=== PATIENT | female | born 1975 | race Caucasian/White ===

== ENCOUNTER 2023-04-07 06:46 | Day surgery (SDC) | payer BC ==
[2023-04-07] MEDS ORDERED: Ringers Lactate 1,000 ML IV ONE (07:25)
[2023-04-07 08:09] LABS: Urine Specific Gravity/Preg 1.025 (1.005-1.030)
[2023-04-07] MEDS ORDERED: LIDOCAINE HCL/EPINEPHRINE 20 ML MDV ONE (08:09)
[2023-04-07] MEDS ORDERED: OXYMETAZOLINE HCL 0.05% 15ML NAS ONE (08:09)
[2023-04-07] MEDS ORDERED: EPINEPHRINE/PF 1 MG/ML AMP ONE (08:09)
[2023-04-07] MEDS ORDERED: propofoL 200 MG/20 ML VIAL IV ONE ×3 (08:17→09:33)
[2023-04-07] MEDS ORDERED: FENTANYL CITR 100 MCG/2 ML ONE ×3 (08:17→09:25)
[2023-04-07] MEDS ORDERED: MIDAZOLAM HCL 2 MG/2 ML INJ ONE (08:18)
[2023-04-07] MEDS ORDERED: LIDOCAINE 2% MPF 5 ML VIAL ONE (08:18)
[2023-04-07] MEDS ORDERED: ONDANSETRON 4 MG/2 ML VIAL ONE (08:20)
[2023-04-07] MEDS ORDERED: dexAMETHasone 10 MG/ML VIAL ONE ×2 (08:20→09:15)
[2023-04-07] MEDS ORDERED: ROCURONIUM 50 MG/5 ML VIAL IV ONE (09:04)
[2023-04-07] MEDS ORDERED: ACETAMINOPHEN 325 MG TABLET ONE (11:13)
[2023-04-07 13:41] VITALS: O2SAT 96
[2023-04-07 14:00] VITALS: BP 132/92; TEMP 97.8
--- NOTE | 2023-04-08 21:27 | OP ---
Date of Procedure: 04/07/2023 Surgeon: ELAYNE MCDONALD Preoperative Diagnoses: 1.Chronic dysphonia. 2.Bilateral vocal cord neoplasm, uncertain behavior. Postoperative Diagnoses: 1.Chronic dysphonia. 2.Bilateral vocal cord neoplasm, uncertain behavior. Procedure: Flexible bronchoscopy. Anesthesia: General endotracheal anesthesia was administered. 2 sized tubes were used including a 7.5, and a 6.0 endotracheal tube. We also did spontaneous ventil ation through the last half of the procedure. Estimated Blood Loss: None. Specimens: None. Findings: Difficult airway with small glottis, small neck, and small epiglottis. Mucoid secretions in the lower segment bronchials, but no neoplasm. Complications: None. Disposition: Stable. Patient tolerated the procedure well. Indication For Procedure: Patient is a pleasant 48-year-old female who presents in the outpatient cl in with chronic dysphonia. 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 These were indicat ions to bring the patient to operative suite for the above-mentioned procedure. She understood, all questions were answered. Risks versus benefits and complications were explained in detail and a cons ent form was signed, which was placed in the chart. Description Of Procedure: Patient was transferred from the preoperative holding area to the operativ e suite by Department of Anesthesia, placed on the operating table supine, sedated, intubated in norm al fashion. Table was rotated 90 degrees. A flexible bronchoscope was introduced through a 7.5 mm e ndotracheal tube and advanced to the level of the yolanda. The scope was advanced into the right and left mainstem bronchi and there was no evidence of abnormality, mucosal irritation, or neoplasm. The scope was then advanced to the lower segment bronchials involving the right and left lungs. The low er segment bronchials bilaterally were normal with just a mild amount of mucoid secretions, but no ev idence of neoplasm, ulceration, or irritation. Then, secretions were suctioned and then the scope wa s withdrawn through the endotracheal tube. The tube was then changed out to a smaller 6.0 mm endotra cheal tube and then taped to the left oral commissure. A rigid laryngoscope was advanced along the e ndotracheal tube down to the level of the epiglottis and I could not visualize the glottis and the ep iglottis could not be reflected anteriorly. I tried multiple different scopes including an anterior glottic laryngoscope and again due to the lack of reflection of the epiglottis anteriorly and the fac t the epiglottis was very short as was her small glottis, I was able to get her suspended. We attemp franklin for at least a 0.5 hour also removing the endotracheal tube. At one point, it seemed like I coul d get a good visualization of her laryngeal complex and again multiple attempts were unsuccessful. T his was after flexing the neck on the chest and extending the neck and it was felt at this point that the patient would be in better hands with a subspecial lead sql developer. Thus, the rest of the procedu re was aborted. Patient was awakened, extubated, and transferred to postoperative care unit in stabl e condition. It was discussed with her family that she will be referred to a lead sql developer and a daniella ne call was made and she is scheduled for an appointment on April 08 at 11:00 a.m. patient will follow up with me in 4 weeks or sooner if needed. FRANSICO/KINJAL Voice ID: [id number] Report ID: [id number]
== END 2023-04-07 12:00 | disposition home or self-care (01) ==
LOC: OR 06:46
PROVIDERS: ATTEND Otolaryngology Facial Plastic Surgery
PROC: 0BJ08ZZ Inspection of Tracheobronchial Tree, Via Natural or Artificial Opening Endoscopic (ICD-10-PCS; principal; 2023-04-07 08:00)
PROC: 0CJS8ZZ Inspection of Larynx, Via Natural or Artificial Opening Endoscopic (ICD-10-PCS; 2023-04-07 08:00)
DX: R49.0 Dysphonia (principal); D38.0 Neoplasm of uncertain behavior of larynx
CPT/HCPCS: 31622; 31525; 81025; J2704; J2001; J2250; J3010 ×3; J1100 ×2; J2405; J7120; J0171

== ENCOUNTER 2023-11-22 09:08 | Emergency (ER) | payer BC ==
--- OUTSIDE RECORDS SUMMARY | 2023-11-22 09:12 | XMS REPORT | Continuity of Care Document ---
Author Name Unknown Address [address] [facility]. [address] [place] [address] [facility] thconnect Address [address] [facility] [place] [address] Care Team Providers Care Entertainer & Comic Name Role Phone Andreas Trent M Primary Care Physician [phone] Andreas Trent M Attending Clinician Unavailable EBRACHARLOTTE CROWE Attending Clinician Unavailable Ebrahim INSPECTOR WIRE ROPECharlotte Cancino Attending Clinician [phone] Unknown, Attending Attending Clinician Unavailab Fletcher Mary NP Attending Clinician FLETCHER FARIAS Attending Clinician Unavaila ble Doctor Unassigned, [place] Attending Clinician U cindyailFLETCHER Reynolds Admitting Clinician Unavailsukhwinder shaw Payers Payer Name Policy Type Policy Number Effective Date Expirati on Date Source [facility] 6 [id number] 2017 00:00:00 [facility] - OUT OF STATE [id number] 2020 00:00:00 Problems Condition Name Condition Details Condition Category Status Onset Date Resolution Date Last Treatment Date Treating Clinician Comments Source Breast cancer screening by mammogram Breast cancer screening by mammogram Disease Active 01-16 00:00: 00 [facility] Cervical cancer screening Cervical cancer screening Disease Active 01-16 00:00: 00 [facility] BMI 25.0-25.9, adult BMI 25.0-25.9, adult Disease Active 01-16 00:00: 00 [facility] Need for vaccinatio n Need for vaccinatio n Disease Active 01-16 00:00: 00 [facility] BMI 25.0-25.9, adult BMI 25.0-25.9, adult Disease Active 01-16 00:00: 00 [facility] Excessive or frequent menstruati on Excessive or frequent menstruati on Disease Active 01-13 00:00: 00 [facility] Gastroesop hageal reflux disease Gastroesop hageal reflux disease Disease Active 01-06 00:00: 00 [facility] Anxiety disorder Anxiety disorder Problem [facility] Allergic rhinitis Non-season al allergic rhinitis, unspecifie d trigger Problem [facility] [id number] Mild intermitte nt asthma with exacerbati on Problem [facility] Hypothyroi dism Hypothyroi dism Problem [facility] Moderate persistent asthma Moderate persistent asthma Problem [facility] [id number] Mixed hyperlipid emia Problem [facility] [id number] GERD without esophagiti s Problem [facility] Allergies, Adverse Reactions, Alerts Allergy Name Allergy Type Status Severity Reaction(s) Onset Date Inactive Date Treating Clinician Comments Source Meperidi ne (Pf) Propensi ty to adverse reaction s Active Unknown - See comments 12-04 00:00: 00 [facility] Sulfa (Sulfona mide Antibiot ics) Propensi ty to adverse reaction s Active Unknown - See comments 12-04 00:00: 00 [facility] MEPERIDI NE (PF) DRUG Active Unknown-Cmnt 12-04 00:00: 00 [facility] SULFA (SULFONA MIDE ANTIBIOT ICS) Drug Class Active Unknown-Cmnt 12-04 00:00: 00 [facility] Chocolat e Chocolat e Active Unknown [facility] Social History Social Habit Start Date Stop Date Quantity Comments Source History of Tobacco Use [facility] Sex Assigned At [facility] Alcohol intake 2023-02-15 00:00:00 2023-02-15 00:00:00 Current drinker of alcohol (finding) [facility] History of Social function 2022-01-13 00:00:00 2022-01-13 00:00:00 [facility] Tobacco use and exposure 2022-01-13 00:00:00 2022-01-13 00:00:00 Smokeless tobacco non-user [facility] Smoking Status Start Date Stop Date Source Never smoked tobacco [facility] Medications Ordered Medication Name Filled Medication Name Start Date Stop Date Current Medication? Ordering Clinician Indication Dosage Frequency Signature (SIG) Comments Components Source dexamethaso ne (DECADRON) injection 10 mg 02-15 16:30: 00 02-15 15:22 :00 No [id number] 10mg [facility] amoxicillin -clavulanat e (AUGMENTIN) 875-125 mg per tablet 02-15 00:00: 00 02-26 04:59 :00 No [id number] 1{tbl} Take 1 tablet by mouth in the morning and 1 tablet in the evening. Do all this for 10 days. [facility] promethazin e-dextromet horphan 6.25-15 mg/5 mL syrup 02-15 00:00: 00 02-26 04:59 :00 No [id number] 5mL Take 5 mL by mouth 4 (four) times daily for 10 days. [facility] Albuterol Sulfate (2.5 MG/3ML) 0.083% Albuterol Sulfate (2.5 MG/3ML) 0.083% 01-17 00:00: 00 No 3{ml_as _needed } QID Albuterol Sulfate (2.5 MG/3ML) 0.083% fluticasone propionate 50 mcg/actuati on nasal spray 01-13 16:32: 58 Yes 1 spray in each nostril [facility] lamotrigine (LAMICTAL ORAL) 01-13 16:32: 58 Yes Take by mouth. [facility] albuterol 90 mcg/actuati on inhaler 01-13 16:32: 58 Yes 2{puff} Take 2 Puffs by mouth as needed. [facility] budesonide- formoteroL 160-4.5 mcg/actuati on inhaler 01-13 16:32: 58 Yes 2 puffs [facility] escitalopra m oxalate 10 mg tablet 01-13 16:32: 58 Yes 1 tablet [facility] methylPREDN ISolone 4 mg tablets 01-05 00:00: 00 01-12 04:59 :00 No as directed with food [facility] Synthroid 100 MCG Synthroid 100 MCG No QD Synthroid 100 MCG Omeprazole 40 MG Omeprazole 40 MG No QD Omeprazole 40 MG Lexapro 10 MG Lexapro 10 MG No 1{table t} QD Lexapro 10 MG Flonase 50 MCG/DOSE Flonase 50 MCG/DOSE No 1{spray _in_eac h_nostr il} QD Flonase 50 MCG/DOSE Protonix Protonix No 2{puff s _as_nee ded} Protonix Levothyroxi ne Sodium 100 MCG Levothyroxi ne Sodium 100 MCG No Levothyrox ine Sodium 100 MCG Symbicort 160-4.5 MCG/ACT Symbicort 160-4.5 MCG/ACT No 2{puffs } BID Symbicort 160-4.5 MCG/ACT Qvar RediHaler 80 MCG/ACT Qvar RediHaler 80 MCG/ACT No QD Qvar RediHaler 80 MCG/ACT Immunizations Ordered Immunization Name Filled Immunization Name Date Status Comments Source SARS-COV-2 COVID-19 SUKHI/J&J VACCINE 2021-09-18 00:00:00 Completed [facility] SARS-COV-2 COVID-19 SUKHI/J&J VACCINE 2021-09-18 00:00:00 Completed [facility] SARS-COV-2 COVID-19 SUKHI/J&J VACCINE 2021-09-18 00:00:00 Completed [facility] SARS-COV-2 COVID-19 SUKHI/J&J VACCINE 2021-09-18 00:00:00 Completed [facility] SARS-COV-2 COVID-19 SUKHI/J&J VACCINE 2021-09-18 00:00:00 Completed [facility] SARS-COV-2 COVID-19 SUKHI/J&J VACCINE 2021-09-18 00:00:00 Completed [facility] SARS-COV-2 COVID-19 SUKHI/J&J VACCINE 2021-09-18 00:00:00 Completed [facility] Flucelvax - multidose vial Flucelvax - multidose vial 2019-04-18 17:03:00 Completed [facility] Flucelvax - multidose vial Flucelvax - multidose vial 2019-04-18 17:03:00 Completed [facility] Flucelvax - multidose vial Flucelvax - multidose vial 2019-04-18 17:03:00 Completed [facility] Flucelvax - multidose vial Flucelvax - multidose vial 2019-04-18 17:03:00 Completed [facility] Flucelvax - multidose vial Flucelvax - multidose vial 2019-04-18 17:03:00 Completed [facility] Flucelvax - multidose vial Flucelvax - multidose vial 2019-04-18 17:03:00 Completed [facility] Flucelvax - multidose vial Flucelvax - multidose vial 2019-04-18 17:03:00 Completed [facility] Flucelvax - multidose vial Flucelvax - multidose vial 2019-04-18 17:03:00 Completed [facility] Flucelvax - multidose vial Flucelvax - multidose vial 2019-04-18 17:03:00 Completed [facility] Flucelvax - multidose vial Flucelvax - multidose vial 2019-04-18 17:03:00 Completed [facility] Flucelvax - multidose vial Flucelvax - multidose vial 2019-04-18 17:03:00 Completed [facility] Flucelvax - multidose vial Flucelvax - multidose vial 2019-04-18 17:03:00 Completed [facility] Flucelvax - multidose vial Flucelvax - multidose vial 2019-04-18 17:03:00 Completed [facility] Flucelvax - multidose vial Flucelvax - multidose vial 2019-04-18 17:03:00 Completed [facility] Flucelvax - multidose vial Flucelvax - multidose vial 2019-04-18 17:03:00 Completed [facility] Influenza Virus Vaccine 2019-04-18 00:00:00 Completed [facility] Influenza Virus Vaccine 2019-04-18 00:00:00 Completed [facility] Influenza Virus Vaccine 2019-04-18 00:00:00 Completed [facility] Influenza Virus Vaccine 2019-04-18 00:00:00 Completed [facility] Influenza Virus Vaccine 2019-04-18 00:00:00 Completed [facility] Influenza Virus Vaccine 2019-04-18 00:00:00 Completed [facility] Influenza Virus Vaccine 2019-04-18 00:00:00 Completed [facility] Flucelvax - multidose vial Flucelvax - multidose vial 2019-04-18 00:00:00 Completed [facility] Flucelvax - multidose vial Flucelvax - multidose vial Unknown Completed [facility] Flucelvax - multidose vial Flucelvax - multidose vial Unknown Completed [facility] Flucelvax - multidose vial Flucelvax - multidose vial Unknown Completed [facility] Flucelvax (ccIIV4) - MDV - 0.5mL Flucelvax (ccIIV4) - MDV - 0.5mL Unknown Completed [facility] Flucelvax (ccIIV4) - MDV - 0.5mL Flucelvax (ccIIV4) - MDV - 0.5mL Unknown Completed [facility] Flucelvax (ccIIV4) - MDV - 0.5mL Flucelvax (ccIIV4) - MDV - 0.5mL Unknown Completed [facility] Flucelvax (ccIIV4) - MDV - 0.5mL Flucelvax (ccIIV4) - MDV - 0.5mL Unknown Completed [facility] Flucelvax (ccIIV4) - MDV - 0.5mL Flucelvax (ccIIV4) - MDV - 0.5mL Unknown Completed [facility] Flucelvax (ccIIV4) - MDV - 0.5mL Flucelvax (ccIIV4) - MDV - 0.5mL Unknown Completed [facility] Vital Signs Vital Name Observation Time Observation Value Comments S ource height 2023-07-04 10:30:00 60 [in_i] Commo n [facility] weight 2023-07-04 10:30:00 140 [lb_av] Comm on [facility] temperature 2023-07-04 10:30:00 97.6 [degF] Com mon [facility] bmi 2023-07-04 10:30:00 27.34 kg/m2 Comm on [facility] blood pressure systolic 2023-07-04 10:30:00 120 mm[Hg] [facility] blood pressure diastolic 2023-07-04 10:30:00 80 mm[Hg] [facility] height 2023-06-08 09:30:00 60 [in_i] Commo n [facility] weight 2023-06-08 09:30:00 143.4 [lb_av] Co mmon [facility] temperature 2023-06-08 09:30:00 97.6 [degF] Com mon [facility] bmi 2023-06-08 09:30:00 28 kg/m2 Commo n [facility] oximetry 2023-06-08 09:30:00 97 [facility] 2023-06-08 09:30:00 132 mm[Hg] [facility] blood pressure diastolic 2023-06-08 09:30:00 74 mm[Hg] [facility] Systolic blood pressure 2023-02-15 14:49:00 126 mm[Hg] [facility] Diastolic blood pressure 2023-02-15 14:49:00 85 mm[Hg] [facility] Heart rate 2023-02-15 14:49:00 102 /min [facility] Body temperature 2023-02-15 14:49:00 36.61 Cheryle [facility] Respiratory rate 2023-02-15 14:49:00 14 /min [facility] Body height 2023-02-15 14:49:00 154.9 cm [facility] Body weight 2023-02-15 14:49:00 59.33 kg [facility] BMI 2023-02-15 14:49:00 24.71 kg/m2 [facility] Oxygen saturation in Arterial blood by Pulse oximetry 2023-02-15 14:49:00 96 /min [facility] height 2023-01-12 09:40:00 60 [in_i] Commo n [facility] weight 2023-01-12 09:40:00 140 [lb_av] Comm on [facility] temperature 2023-01-12 09:40:00 98.5 [degF] Com mon [facility] bmi 2023-01-12 09:40:00 27.34 kg/m2 Comm on [facility] oximetry 2023-01-12 09:40:00 97 % Commo n [facility] respiratory rate 2023-01-12 09:40:00 17 /min [facility] blood pressure systolic 2023-01-12 09:40:00 123 mm[Hg] [facility] blood pressure diastolic 2023-01-12 09:40:00 83 mm[Hg] [facility] height 2022-07-21 16:40:00 60 [in_i] Commo n [facility] weight 2022-07-21 16:40:00 135 [lb_av] Comm on [facility] bmi 2022-07-21 16:40:00 26.36 kg/m2 Comm on [facility] blood pressure systolic 2022-07-21 16:40:00 131 mm[Hg] [facility] blood pressure diastolic 2022-07-21 16:40:00 80 mm[Hg] [facility] height 2022-02-01 11:00:00 60 [in_i] Commo n [facility] weight 2022-02-01 11:00:00 134 [lb_av] Comm on [facility] bmi 2022-02-01 11:00:00 26.17 kg/m2 Comm on [facility] height 2022-01-18 09:50:00 60 [in_i] Commo n [facility] weight 2022-01-18 09:50:00 134 [lb_av] Comm on [facility] temperature 2022-01-18 09:50:00 97.7 [degF] Com mon [facility] bmi 2022-01-18 09:50:00 26.17 kg/m2 Comm on [facility] oximetry 2022-01-18 09:50:00 98 % Commo n [facility] respiratory rate 2022-01-18 09:50:00 16 /min [facility] blood pressure systolic 2022-01-18 09:50:00 132 mm[Hg] [facility] blood pressure diastolic 2022-01-18 09:50:00 87 mm[Hg] [facility] Systolic blood pressure 2022-01-13 21:31:00 124 mm[Hg] [facility] Diastolic blood pressure 2022-01-13 21:31:00 86 mm[Hg] [facility] Heart rate 2022-01-13 21:31:00 72 /min [facility] Body temperature 2022-01-13 21:31:00 36.78 Cheryle [facility] Respiratory rate 2022-01-13 21:31:00 18 /min [facility] Body height 2022-01-13 21:31:00 154.9 cm [facility] Body weight 2022-01-13 21:31:00 61.689 kg [facility] BMI 2022-01-13 21:31:00 25.70 kg/m2 [facility] height 2022-01-05 11:40:00 60 [in_i] Commo n [facility] weight 2022-01-05 11:40:00 130 [lb_av] Comm on [facility] bmi 2022-01-05 11:40:00 25.39 kg/m2 Comm on [facility] height 2021-08-28 09:30:00 60 [in_i] Commo n [facility] weight 2021-08-28 09:30:00 130 [lb_av] Comm on [facility] temperature 2021-08-28 09:30:00 97.5 [degF] Com mon [facility] bmi 2021-08-28 09:30:00 25.39 kg/m2 Comm on [facility] height 2021-03-31 16:40:00 60 [in_i] Commo n [facility] weight 2021-03-31 16:40:00 132 [lb_av] Comm on [facility] temperature 2021-03-31 16:40:00 98 [degF] Comm on [facility] bmi 2021-03-31 16:40:00 25.78 kg/m2 Comm on [facility] blood pressure systolic 2021-03-31 16:40:00 122 mm[Hg] [facility] blood pressure diastolic 2021-03-31 16:40:00 70 mm[Hg] [facility] height 2021-03-10 15:30:00 60 [in_i] Commo n [facility] weight 2021-03-10 15:30:00 135.3 [lb_av] Co mmon [facility] temperature 2021-03-10 15:30:00 97.6 [degF] Com mon [facility] bmi 2021-03-10 15:30:00 26.42 kg/m2 Comm on [facility] oximetry 2021-03-10 15:30:00 99 % Commo n [facility] respiratory rate 2021-03-10 15:30:00 16 /min [facility] blood pressure systolic 2021-03-10 15:30:00 125 mm[Hg] [facility] blood pressure diastolic 2021-03-10 15:30:00 87 mm[Hg] [facility] Procedures Procedure Date / Time Performed Performing Clinicia n Source POCT SARS-COV-2 ANTIGEN (BINAX NOW) 2023-02-15 15:08:00 Charlotte Garcia [facility] ASSIGNMENT OF BENEFITS 2022-07-16 19:50:29 Docto r Unassigned, [place] [facility] HIGH RISK HPV-THIN PREP 2022-01-13 21:42:00 Fletcher Farias [facility] PAP SMEAR-LIQUID BASED-CP 2022-01-13 21:42:00 Fletcher Farias [facility] Encounters Start Date/Time End Date/Time Encounter Type Admission Type Attending [facility] Care Department Encounter ID Source 2023-02-11 10:28:00 Outpatient Johns, Trent [facility] [id number] [facility] 2022-07-21 08:41:00 Outpatient Johns, Trent [facility] [id number] [facility] 2022-02-01 08:56:00 Outpatient Johns, Trent [facility] [id number] [facility] 2022-01-18 09:49:00 Outpatient Johns, Trent [facility] ST[facility] [id number] [facility] 2021-08-28 08:16:00 Outpatient Johns, Trent [facility] [id number] [facility] 2021-07-15 13:58:53 Outpatient Johns, Trent [facility] [id number] [facility] 2021-07-15 13:45:10 Outpatient Johns, Trent [facility] ST[facility] [id number] [facility] 2021-07-15 11:09:41 Outpatient Johns, Trent [facility] [id number] [facility] 2021-07-15 11:03:50 Outpatient Johns, Trent [facility] [id number] [facility] 2023-11-21 00:00:00 2023-11-21 00:00:00 (TEL) [facility]C ST[facility] [id number] [facility] 2023-07-11 00:00:00 2023-07-11 00:00:00 (TEL) [facility]C [facility] [id number] [facility] 2023-07-04 00:00:00 2023-07-04 00:00:00 OFFICE VISIT ESTAB PT LEVEL 3 [facility] ST[facility] [id number] [facility] 2023-06-08 00:00:00 2023-06-08 00:00:00 PREV VISIT EST AGE 40-64 [facility] ST[facility]C [id number] [facility] 2023-02-15 09:20:00 2023-02-15 10:31:37 Outpatient R CHARLOTTE GARCIA [facility] [id number] [facility] 2023-02-15 09:20:00 2023-02-15 10:31:37 Urgent Care Charlotte Garcia Unknown, Attending [facility] 1..[id number] [facility] 2023-01-25 00:00:00 2023-01-25 00:00:00 (TEL) STLMLC STL[facility]C [id number] [facility] 2023-01-25 00:00:00 2023-01-25 00:00:00 (TEL) [facility]C [facility] [id number] [facility] 2023-01-17 00:00:00 2023-01-17 00:00:00 (TEL) [facility]C [facility] [id number] [facility] 2023-01-12 00:00:00 2023-01-12 00:00:00 OFFICE VISIT ESTAB PT LEVEL 3 [facility] ST[facility] [id number] [facility] 2023-01-10 00:00:00 2023-01-10 00:00:00 (TEL) STLMLC STL[facility]C [id number] [facility] 2022-07-27 00:00:00 2022-07-27 00:00:00 Telephone Fletcher Farias [facility] 1..840.114 [id number] [facility] 2022-07-21 00:00:2022-07-21 00:00:00 OFFICE VISIT ESTAB PT LEVEL 3 [facility] ST[facility]C [id number] [facility] 2022-07-16 13:52:08 2022-07-16 23:59:00 Outpatient R FLETCHER FARIAS [facility] [id number] [facility] 2022-07-16 13:52:08 2022-07-16 23:59:00 Hospital Encounter Fletcher Farias [facility] [id number] [facility] 2022-07-16 00:00:00 2022-07-16 00:00:00 Orders Only Doctor Unassigned, [place] [facility] [id number] [facility] 2022-07-12 00:00:00 2022-07-12 00:00:00 (TEL) STLMLC ST[facility]C [id number] [facility] 2022-03-05 00:00:00 2022-03-05 00:00:00 Outpatient R FLETCHER FARIAS [facility] [id number] [facility] 2022-02-16 00:00:00 2022-02-16 00:00:00 (TEL) [facility]LMLC ST[facility] [id number] [facility] 2022-02-01 00:00:00 2022-02-01 00:00:00 (TEL) [facility]C [facility]C [id number] [facility] 2022-02-01 00:00:00 2022-02-01 00:00:00 OFFICE VISIT EST PT LEVEL 3 [facility] [id number] [facility] 2022-01-18 00:00:00 2022-01-18 00:00:00 PREV VISIT EST AGE 40-64 STLMLC STLMLC [id number] [facility] 2022-01-13 16:00:00 2022-01-13 17:07:45 Office Visit [facility] [id number] [facility] 2022-01-13 16:00:00 2022-01-13 17:07:45 [facility] [id number] [facility] 2022-01-13 16:00:00 2022-01-13 16:00:00 Outpatient R FLETCHER FARIAS [facility] [id number] [facility] 2022-01-05 00:00:00 2022-01-05 00:00:00 OL DIG E/M SVC 11-20 MIN STLMLC STLMLC [id number] [facility] 2022-01-04 00:00:00 2022-01-04 00:00:00 (TEL) STLMLC ST[facility]C [id number] [facility] 2021-11-09 00:00:00 2021-11-09 00:00:00 (TEL) STLMLC ST[facility]C [id number] [facility] 2021-09-03 00:00:00 2021-09-03 00:00:00 (TEL) STLMLC ST[facility]C [id number] [facility] 2021-08-28 00:00:00 2021-08-28 00:00:00 OFFICE VISIT EST PT LEVEL 3 [facility] ST[facility] [id number] [facility] 2021-08-27 00:00:00 2021-08-27 00:00:00 (TEL) STLMLC ST[facility]C [id number] [facility] 2021-03-31 00:00:00 2021-03-31 00:00:00 OFFICE VISIT EST PT LEVEL 3 [facility] [id number] [facility] 2021-03-10 00:00:00 2021-03-10 00:00:00 OFFICE VISIT ESTAB PT LEVEL 4 [facility] [id number] [facility] 2021-03-09 00:00:00 2021-03-09 00:00:00 (TEL) STLMLC STL[facility]C [id number] [facility] 2020-08-18 00:00:00 2020-08-18 00:00:00 Outpatient [facility] [id number] [facility] 2020-02-21 16:30:00 2020-02-21 16:30:[address] [facility] [id number] [facility] 2020-01-24 15:12:00 2020-01-24 15:12:00 [address] [facility] [id number] [facility] 2020-01-22 13:00:00 2020-01-22 13:00:00 Out[facility] [id number] [facility] 2020-01-22 10:33:00 2020-01-22 10:33:00 [facility] [id number] [facility] 2019-11-29 15:13:00 2019-11-29 15:13:00 [address] [facility] [id number] [facility] 2019-08-15 16:30:00 2019-08-15 16:30:[address] [facility] [id number] [facility] 2019-04-19 16:01:00 2019-04-19 16:01:[address] [facility] [id number] [facility] 2019-04-18 16:30:00 2019-04-18 16:30:[address] [facility] [id number] [facility] 2019-04-11 09:47:00 2019-04-11 09:47:00 [facility] [id number] [facility] 2019-04-06 11:00:00 2019-04-06 11:00:00 [facility] [id number] [facility] 2019-01-15 14:30:00 2019-01-15 14:30:[address] [facility] [id number] [facility] 2018-10-04 15:04:00 2018-10-04 15:04:00 [facility] [id number] [facility] 2018-06-01 07:20:00 2018-06-01 07:20:00 [facility] [id number] [facility] 2018-05-31 15:45:00 2018-05-31 15:45:00 [facility] [id number] [facility] 2017-11-01 14:00:00 2017-11-01 14:00:00 [facility] [id number] [facility] 2017-09-19 16:00:00 2017-09-19 16:00:00 [facility] [id number] [facility] Results Test Description Test Time Test Comments Results Result Co mments Source HEMOGLOBIN [id number] 00:00:00* Test Item Value Reference Range Interpretation Comme nts HEMOGLOBIN A1c (test code = 4548-4) 5.1 % See_Comment [Automated messa ge] The system which generated this result transmitted reference range: 4.2-5.6 %. The reference range was not used to interpret this result as normal/abnormal. TSH REFLEX TO FREE [id number] 00:00:00* Test Item Value Reference Range Interpretation Comme nts TSH REFLEX TO FREE T4 (test code = 83372-6) 3.180 UIU/ML See_Comment [Automated [employer]] The system which generated this result transmitted reference range: 0.400-4.100 UIU/ML. The reference range was not used to interpret this result as normal/abnormal. HEPATITIS C [id number] 00:00:00* Test Item Value Reference Range Interpretation Comme nts HEPATITIS C ANTIBODY (test c ode = 76903-9) NON-REACTIVE NON-REACTIVE URINALYSIS (CULTURE IF INDICATED)2023-06-08 00:00:00* Test Item Value Reference Range Interpretation Comme nts APPEARANCE (test code = 5767-9) CLEAR CLEAR BACTERIA (test code = 97055-6) NONE SEEN NONE SEEN BILIRUBIN (test code = 5770-3) NEGATIVE NEGATIVE CASTS, HYALINE (test code = 51013-7) NONE SEEN NONE-TRACE COLOR (test code = 5778-6) YELLOW YELLOW-STRAW EPITHELIAL CELLS (test code = 55208-3) 0-5 /HPF See_Comment [Automated [employer]] The system which generated this result transmitted reference range: 0-10 /HPF. The reference range was not used to interpret this result as normal/abnormal. GLUCOSE (test code = 5792-7) NEGATIVE NEGATIVE KETONES (test code = 5797-6) NEGATIVE NEGATIVE LEUKOCYTE ESTERASE (test code = 5799-2) NEGATIVE NEGATIVE NITRITE (test code = 5802-4) NEGATIVE NEGATIVE OCCULT BLOOD (test code = 81276-5) 1+ NEGATIVE A pH (test code = 5803-2) 6.5 5.0-9.0 PROTEIN (test code = 96753-7) NEGATIVE NEGATIVE RED BLOOD CELLS (test code = 60766-8) 0-2 /HPF See_Comment [Automated [employer]] The system which generated this result transmitted reference range: 0-2 /HPF. The reference range was not used to interpret this result as normal/abnormal. SPECIFIC GRAVITY (test code = 5811-5) 1.017 1.005-1.035 UROBILINOGEN (test code = 75321-7) 1.0 MG/DL See_Comment [Automated [employer]] The system which generated this result transmitted reference range: <=2.0 MG/DL. The reference range was not used to interpret this result as normal/abnormal. WHITE BLOOD CELLS (test code = 22517-1) 0-5 /HPF See_Comment [Automated messa ge] The system which generated this result transmitted reference range: 0-5 /HPF. The reference range was not used to interpret this result as normal/abnormal. LIPID PANEL WITH REFLEX DIRECT [id number] 00:00:00* Test Item Value Reference Range Interpretation Comme nts CALC LDL CHOL (test code = 94428-8) 131 MG/DL See_Comment H [Automated messa ge] The system which generated this result transmitted reference range: <100 MG/DL. The reference range was not used to interpret this result as normal/abnormal. CHOLESTEROL (test code = 2093-3) 246 MG/DL See_Comment H [Automated messa ge] The system which generated this result transmitted reference range: <200 MG/DL. The reference range was not used to interpret this result as normal/abnormal. HDL CHOLESTEROL (test code = 2085-9) 85 MG/DL See_Comment [Automated messa ge] The system which generated this result transmitted reference range: >39 MG/DL. The reference range was not used to interpret this result as normal/abnormal. RISK RATIO LDL/HDL (test code = 01509-2) 1.54 RATIO See_Comment [Automated message] The system which generated this result transmitted reference range: <3.22 RATIO. The reference range was not used to interpret this result as normal/abnormal. TRIGLYCERIDES (test code = 2571-8) 162 MG/DL See_Comment H [Automated messa ge] The system which generated this result transmitted reference range: <150 MG/DL. The reference range was not used to interpret this result as normal/abnormal. COMPREHENSIVE METABOLIC [id number] 00:00:00* Test Item Value Reference Range Interpretation Comme nts ALBUMIN (test code = 1751-7) 4.5 G/DL See_Comment [Automated messa ge] The system which generated this result transmitted reference range: 3.5-5.2 G/DL. The reference range was not used to interpret this result as normal/abnormal. ALKALINE PHOSPHATASE (test code = 6768-6) 76 U/L See_Comment [Automated message] The system which generated this result transmitted reference range: 40-125 U/L. The reference range was not used to interpret this result as normal/abnormal. BILIRUBIN, TOTAL (test code = 1975-2) 0.5 MG/DL See_Comment [Automated message] The system which generated this result transmitted reference range: <=1.2 MG/DL. The reference range was not used to interpret this result as normal/abnormal. BUN (test code = 3094-0) 12 MG/DL See_Comment [Automated messa ge] The system which generated this result transmitted reference range: 6-20 MG/DL. The reference range was not used to interpret this result as normal/abnormal. CALCIUM (test code = 14799-3) 9.6 MG/DL See_Comment [Automated messa ge] The system which generated this result transmitted reference range: 8.5-10.5 MG/DL. The reference range was not used to interpret this result as normal/abnormal. CALC A/G RATIO (test code = 1759-0) 1.6 RATIO See_Comment [Automated messa ge] The system which generated this result transmitted reference range: 1.0-2.6 RATIO. The reference range was not used to interpret this result as normal/abnormal. CALC BUN/CREAT (test code = 3097-3) 14 RATIO See_Comment [Automated messa ge] The system which generated this result transmitted reference range: 6-28 RATIO. The reference range was not used to interpret this result as normal/abnormal. CALC GLOBULIN (test code = 76686-6) 2.9 G/DL See_Comment [Automated messa ge] The system which generated this result transmitted reference range: 1.9-3.7 G/DL. The reference range was not used to interpret this result as normal/abnormal. CARBON DIOXIDE (test code = 1963-8) 24 MEQ/L See_Comment [Automated messa ge] The system which generated this result transmitted reference range: 19-31 MEQ/L. The reference range was not used to interpret this result as normal/abnormal. CHLORIDE (test code = 2075-0) 102 MEQ/L See_Comment [Automated messa ge] The system which generated this result transmitted reference range: 95-107 MEQ/L. The reference range was not used to interpret this result as normal/abnormal. CREATININE (test code = 2160-0) 0.86 MG/DL See_Comment [Automated messa ge] The system which generated this result transmitted reference range: 0.60-1.30 MG/DL. The reference range was not used to interpret this result as normal/abnormal. eGFR (2020 CKD-EPI) (test code = 16464-2) 83 ML/MIN/1.73 See_Comment [Automated messa ge] The system which generated this result transmitted reference range: >60 ML/MIN/1.73. The reference range was not used to interpret this result as normal/abnormal. GLUCOSE (test code = 1558-6) 82 MG/DL See_Comment [Automated messa ge] The system which generated this result transmitted reference range: 70-99 MG/DL. The reference range was not used to interpret this result as normal/abnormal. POTASSIUM (test code = 2823-3) 4.5 MEQ/L See_Comment [Automated messa ge] The system which generated this result transmitted reference range: 3.5-5.4 MEQ/L. The reference range was not used to interpret this result as normal/abnormal. PROTEIN, TOTAL (test code = 2885-2) 7.4 G/DL See_Comment [Automated messa ge] The system which generated this result transmitted reference range: 6.1-8.3 G/DL. The reference range was not used to interpret this result as normal/abnormal. AST (test code = 1920-8) 19 U/L See_Comment [Automated messa ge] The system which generated this result transmitted reference range: 9-40 U/L. The reference range was not used to interpret this result as normal/abnormal. ALT (test code = 1742-6) 16 U/L See_Comment [Automated messa ge] The system which generated this result transmitted reference range: 5-40 U/L. The reference range was not used to interpret this result as normal/abnormal. SODIUM (test code = 2951-2) 138 MEQ/L See_Comment [Automated messa ge] The system which generated this result transmitted reference range: 133-146 MEQ/L. The reference range was not used to interpret this result as normal/abnormal. POCT SARS-COV-2 ANTIGEN (BINAX NOW)2023-02-15 15:23:00* Test Item Value Reference Range Interpretation Comme nts POCT SARS-COV-2 ANTIGEN (geeta t code = 20906-5) Not Detected Not Detected On board controls acceptable with C Line (test code = 3574) Yes Lab Interpretation (test cod e = 18679-3) [facility]BINAX NOW)2023-02-15 15:23:00* Test Item Value Reference Range Interpretation Comme nts POCT SARS-COV-2 ANTIGEN (geeta t code = 73601-8) Not Detected Not Detected On board controls acceptable with C Line (test code = 3574) Yes Lab Interpretation (test cod e = 22448-2) [facility] KATHIE CAD [id number] 11:12:54Name: Jim : 1975 Sex: F - SCR MAMM BILATERAL KATHIE CAD DIGITALBILATERAL DIGITAL SCREENING MAMMOGRAM 3D/2D WITH CAD: 07/22/2021LINICAL: Asymptomatic. Digital breast tomosynthesis was performed in addition to routine CC and MLO views. Current mammographic images were evaluated by [employer] CAD (computer-aided detection) software. Comparison is made toexams dated 07/22/2017 mammogram, 07/13/2016 mammogram, 04/08/2015 mammogram - [facility], and 09/17/2020 mammogram - [facility]. The tissue of both breasts is heterogeneously dense. This may lower the sensitivity of mammography. No suspicious mass, architectural distortion, malignant type calcification, or lymph node abnormality detected. Breast architecture is stable compared to prior exams.IMPRESSION: NEGATIVEThere is no mammographic evidence of malignancy. Resume annual screening mammography in one year. Stevan Mcgregor M.D. et/penrad:07/27/2021 11:12:54 Electrical Superintendent: Cecille Vanessa MM, [facility] Mammographyletter sent: BIRADS 1-2 Normal Mammogram BI-RADS: 1 Duggwbvy3T SCR NEHA BILAT W/CAD3D SCR NEHA BILAT W/CAD
[2023-11-22] MEDS ORDERED: MORPHINE 4 MG/ML SYR ONE (09:52)
[2023-11-22] MEDS ORDERED: METOCLOPRAMIDE 10 MG/2mL INJ ONE (09:52)
[2023-11-22] MEDS ORDERED: NA CHLORIDE 0.9% 1,000 ML ONE (09:52)
[2023-11-22] MEDS ORDERED: DIPHENHYDRAMINE 50 MG/ML VIAL ONE (09:52)
[2023-11-22 10:40] LABS: Absolute Eosinophils 0.2 K/uL (0-0.5); Absolute Lymphocytes (CBC) 0.8 K/uL (0.7-4.9); Absolute Neutrophil 8.4 K/uL (1.8-8.0); Basophils % 0.3 % (0-1.3); Eosinophils % 1.6 % (0-4.4); Hemoglobin 14.9 g/dL (12.0-15.0); Lymphocytes % 7.4 % (15.3-44.8); MCHC 33.8 g/dL (32.0-36.0); MCV 94.6 fL (80-100); MPV 7.9 fL (7.6-11.3); Monocytes % 9.9 % (3.3-12.3); Neutrophils % 80.8 % (41.7-73.7); Platelets 390 thou/uL (152-406); RBC Red Blood Cell Count 4.65 M/uL (3.86-4.86); Red Cell Distribution Width 12.6 % (12.1-15.2)
[2023-11-22 10:44] LABS: Specific Gravity 1.026 (1.005-1.030); Sqamous Epithelial <5 /HPF (None Seen); Urine Bacteria None Seen /HPF (<20); Urine Bilirubin NEGATIVE (Negative); Urine Blood 2+ (Negative); Urine Clarity Turbid (Clear); Urine Color Yellow (Yellow); Urine Culture Reflex Order NOT NEEDED; Urine Glucose NEGATIVE (Negative); Urine Ketones TRACE (Negative); Urine Microscopic Reflex YN ORDER UMIC; Urine Mucus 1+ /HPF (None Seen); Urine Nitrite NEGATIVE (Negative); Urine Protein TRACE (Negative); Urine Urobilinogen 1+ (Normal); Urine WBC <5 /HPF (<5); Urine pH 5.5 (5.0-7.0)
[2023-11-22 10:45] LABS: PTT, Activated Partial Thromb 26.8 SECONDS (24.3-36.9)
[2023-11-22 10:58] LABS: Albumin 3.6 g/dL (3.4-5.0); Albumin/Globulin Ratio 0.9 (1.1-1.8); Anion Gap 9.4 mEq/L (5.0-15.0); Bilirubin Total 1.1 mg/dL (0.2-1.0); Potassium 3.4 mEq/L (3.5-5.1); Protein, Total 7.6 g/dL (6.4-8.2)
--- NOTE | 2023-11-22 11:06 | RAD REPORT ---
EXAM DESCRIPTION: US - Abdomen Exam Limited - 11/22/2023 10:36 am CLINICAL HISTORY: ruq abd pain;Abd pain COMPARISON: No comparisons TECHNIQUE: Sonographic grayscale and color flow images of the right upper abdominal quadrant were o btained. FINDINGS: The gallbladder demonstrates no gallstones. Mild sludge layering dependently. No perichole cystic fluid or gallbladder wall thickening. The common bile duct is normal measuring 2 mm. The liver demonstrates no findings of intrahepatic biliary dilatation. IMPRESSION: Mild gallbladder sludge. No evidence of gallstones or sonographic findings to suggest ac master cholecystitis.
[2023-11-22] MEDS ORDERED: POTASSIUM CL SA 10 MEQ TAB PO ONE (11:26)
--- NOTE | 2023-11-22 11:38 | RAD REPORT ---
EXAM DESCRIPTION: CT - Abdomen Pelvis W Contrast - 11/22/2023 11:06 am CLINICAL HISTORY: ABD PAIN COMPARISON: No comparisons TECHNIQUE: Thin cut axial CT imaging of the abdomen and pelvis was performed following intravenous a dministration of 100 mL Isovue 300. Multiplanar reformats were generated and reviewed. All CT scans are performed using dose optimization technique as appropriate and may include automated exposure control or mA/KV adjustment according to patient size. FINDINGS: No suspicious findings in the lung bases. The liver, spleen, adrenal glands, and pancreas show no suspicious findings. Gallbladder and biliary tree are also without suspicious finding. Symmetric renal function is seen with no hydronephrosis or suspicious renal mass. No dilated bowel loops and long segment of distal small bowel wall thickening, transmural edema, and mucosal hyperenhancement with mild adjacent fat stranding extending to the terminal ileum. No appreci able fluid collections or findings to suggest fistula formation. No free air, or free fluid. No herni a, mass or bulky lymphadenopathy. Bilateral adnexal cysts or dominant follicles, largest measuring 3 cm on the left. The urinary bladder is without significant finding. No suspicious bony findings. Small ovoid hyperdense 1.2 cm structure along the right paramidline aspect of the introitus, may repr esent a complicated small Bartholin's gland cyst. IMPRESSION: Long segment of ileitis extending to the terminal ileum, suggestive of inflammatory dequan l disease, although an infectious etiology is not entirely excluded. No evidence of complications at this time. Incidental findings as above.
--- NOTE | 2023-11-22 12:09 | ER ---
Nurse's Notes [facility] Name: Fidelina Cedeño Age: 48 yrs Sex: Female : 1975 Arrival Date: 11/22/2023 Time: 09:08 Bed 16 Private MD: Diagnosis: Noninfective gastroenteritis and colitis, unspecified;Other cholelithiasis without obstruction Presentation: 11/21 09:22 Chief complaint: Patient states: she has been having upper abdominal pain since Tuesday ap3 11/20/2023. patient states the pain has been cramping with diarrhea and vomiting. patient reports the pain has since moved to her lower abdomen, and has not improved over the last few days. patient currently rates her pain as a 4/10 on the pain scale. Coronavirus screen: At this time, the client does not indicate any symptoms associated with coronavirus-19. Ebola Screen: No symptoms or risks identified at this time. Initial Sepsis Screen: Does the patient meet any 2 criteria? HR > 90 bpm. Does the patient have a suspected source of infection? No. Patient's initial sepsis screen is negative. Risk Assessment: Do you want to hurt yourself or someone else? Patient reports no desire to harm self or others. Onset of symptoms was November 20, 2023. 09:22 Method Of Arrival: Ambulatory ap3 09:22 Acuity: KAYLAH 3 ap3 Triage Assessment: 09:26 General: Appears uncomfortable, Behavior is calm, cooperative, appropriate for age. ap3 Pain: Complains of pain in abdomen Pain currently is 4 out of 10 on a pain scale. at worst was 10 out of 10 on a pain scale. Quality of pain is described as crampy, Is intermittent. Neuro: Level of Consciousness is awake, alert, obeys commands, Oriented to person, place, time, situation. Cardiovascular: Patient's skin is warm and dry. Respiratory: Airway is patent Respiratory effort is even, unlabored, Respiratory pattern is regular, symmetrical. GI: Reports lower abdominal pain, upper abdominal pain, cramping, diarrhea, nausea, vomiting. Historical: - Allergies: 09:23 Sulfa (Sulfonamide Antibiotics); ap3 - Home Meds: :23 levothyroxine oral [Active]; pantoprazole oral [Active]; Lexapro Oral [Active]; ap3 - PMHx: 09:23 Hypothyroidism; Gastroesophageal reflux disease; Anxiety; ap3 - Immunization history:: Client reports receiving the 2nd dose of the Covid vaccine. - Infectious Disease History:: Denies. - Social history:: Smoking status: Patient denies any tobacco usage or history of. Screenin:27 Abuse screen: Denies threats or abuse. Nutritional screening: No deficits noted. ap3 Tuberculosis screening: No symptoms or risk factors identified. 09:30 [facility] ED Fall Risk Assessment (Adult) History of falling in the last 3 months, bp including since admission No falls in past 3 months (0 pts). Assessment: 09:30 General: Appears in no apparent distress. uncomfortable, Behavior is cooperative, bp appropriate for age, anxious. GI: Abdomen is non-distended. 12:15 Reassessment: [facility]. bp Vital Signs: 09:22 BP 132 / 99; Pulse 107; Resp 18; Temp 98.3; Pulse Ox 100% ; Weight 63.5 kg; Height 5 ap3 ft. 0 in. ; Pain 4/10; 11:00 BP 141 / 95; Pulse 102; Resp 16; Pulse Ox 99% ; bp 12:15 BP 131 / 99; Pulse 96; Resp 16; Pulse Ox 99% ; bp 09:22 Body Mass Index 27.34 (63.50 kg, 152.4 cm) ap3 09:22 Pain Scale: Adult ap3 ED Course: 09:11 Patient arrived in ED. im 09:17 Fabrice Driver MD is Attending Physician. ec2 09:21 Alex Pena, TMAI is Primary Nurse. bp 09:23 Triage completed. ap3 09:27 Arm band placed on right wrist. ap3 09:30 Patient has correct armband on for positive identification. bp 09:30 Provided Education on: n/a. bp 09:30 No provider procedures requiring assistance completed. Inserted saline lock: 22 gauge bp in left antecubital area, using aseptic technique. Blood collected. 10:37 US Abdomen Limited In Process Unspecified. EDMS 11:07 Abdomen In Process Unspecified. EDMS 12:08 Blayne Blackwell MD is Referral Physician. ec2 12:08 Blayne Curry MD is Referral Physician. ec2 12:15 IV discontinued, intact, bleeding controlled, No redness/swelling at site. Pressure bp dressing applied. Administered Medications: 10:26 Drug: NS 0.9% IV 1000 ml IV at 1 bolus Per protocol; 1000 mL bolus Route: IV; Rate: 1 bp bolus; Site: left antecubital; 12:19 Follow up: IV Status: Completed infusion; IV Intake: 1000ml bp 10:26 Drug: metoCLOPramide IVP 10 mg IVP once; over 1 to 2 minutes Route: IVP; Site: left bp antecubital; 12:19 Follow up: Response: No adverse reaction bp 10:26 Drug: diphenhydrAMINE IVP 25 mg IVP once Route: IVP; Site: left antecubital; bp 12:19 Follow up: Response: No adverse reaction bp 10:26 Drug: morphine IVP or IV 4 mg IVP once over 4 mins Route: IVP; Infused Over: 4 mins; bp Site: left antecubital; 12:19 Follow up: Response: No adverse reaction bp 11:38 Drug: Potassium Chloride PO 40 mEq PO once Route: PO; bp 12:19 Follow up: Response: No adverse reaction bp Medication: 12:15 VIS not applicable for this client. bp Intake: 12:19 IV: 1000ml; Total: 1000ml. bp Outcome: 12:08 Discharge ordered by . ec2 12:15 Discharged to home ambulatory, bp 12:15 Condition: stable 12:15 Discharge instructions given to patient, Instructed on discharge instructions, follow up and referral plans. Demonstrated understanding of instructions, follow-up care, 12:20 Patient left the ED. bp Signatures: Dispatcher [employer] Alex Vyas RN RN bp Prokisch, Amanda, RN RN ap3 Jonna Estrada Edwin, MD MD ec2
--- NOTE | 2023-11-22 12:09 | EDPHYS ---
Physician Documentation [facility] Name: Fidelina Cedeño Age: 48 yrs Sex: Female : 1975 Arrival Date: 11/22/2023 Time: 09:08 Bed 16 Private MD: ED Physician Fabrice Driver HPI: 11/21 09:31 This 48 yrs old Female presents to ER via Ambulatory with complaints of ec2 Nausea/Vomiting/Diarrhea, Abdominal Pain. 09:31 Patient arrives today for evaluation of upper abdominal pain. Reports she has been ec2 having upper abdominal pain ongoing for 2 days. Patient reports associated nausea and vomiting. Reports decreased p.o. intake. Also reports diarrhea. Patient reports no urinary complaints, no cough or cold symptoms, no fevers or chills. Patient reports she is taken some Zofran with minimal alleviation of symptoms.. Historical: - Allergies: 09:23 Sulfa (Sulfonamide Antibiotics); ap3 - Home Meds: 09:23 levothyroxine oral [Active]; pantoprazole oral [Active]; Lexapro Oral [Active]; ap3 - PMHx: 09:23 Hypothyroidism; Gastroesophageal reflux disease; Anxiety; ap3 - Immunization history:: Client reports receiving the 2nd dose of the Covid vaccine. - Infectious Disease History:: Denies. - Social history:: Smoking status: Patient denies any tobacco usage or history of. ROS: 09:31 Constitutional: as per hpi ec2 Exam: :31 Constitutional: GEN: NAD Head: atraumatic Eyes: EOMI Ears: External ears are ec2 normal. CV: regular rate LUNGS: no respiratory distress ABD: non-distended, soft, tender in the epigastrium, positive [place] sign. SKIN: no evidence of rashes MSK: no evidence of trauma NEURO: moves all extremities equally Vital Signs: 09:22 BP 132 / 99; Pulse 107; Resp 18; Temp 98.3; Pulse Ox 100% ; Weight 63.5 kg; Height 5 ap3 ft. 0 in. ; Pain 4/10; 11:00 BP 141 / 95; Pulse 102; Resp 16; Pulse Ox 99% ; bp 12:15 BP 131 / 99; Pulse 96; Resp 16; Pulse Ox 99% ; bp 09:22 Body Mass Index 27.34 (63.50 kg, 152.4 cm) ap3 09:22 Pain Scale: Adult ap3 MDM: 09:18 Patient medically screened. ec2 09:31 Data reviewed: vital signs. ED course: Patient arrives today for evaluation of upper ec2 abdominal pain. Examination remarkable for abdominal findings as noted above. Will obtain lab work, urine studies, CT imaging and ultrasound. Differential diagnosis includes processes such as pancreatitis, cholecystitis, appendicitis, urinary tract infection . 10:59 ED course: Metabolic profile shows slight hypokalemia with potassium of 3.4. Lactate ec2 within normal ranges. Urine is noninfectious appearing. CBC is reassuring. . 12:00 ED course: Patient with ileitis noted on CT imaging. I will have the patient follow-up ec2 outpatient expectantly with GI. . 12:01 ED course: Patient ultimately having diarrhea output, suspect this more likely ec2 infectious. I will treat the patient medically and have the patient follow-up outpatient.. 14:15 ED course: MDM: Differential diagnosis as documented above in ED course; All lab tests ec2 ordered and reviewed as documented above; Parenteral controlled substances: Yes; History gathered from independent historian: Yes, family member . 11/21 09:28 Order name: Blood Culture Adult (2) ec2 11/21 09:28 Order name: CBC with Diff; Complete Time: 10:59 ec2 11/21 09:28 Order name: CMP; Complete Time: 10:59 ec2 11/21 09:28 Order name: Lactate w/ 2H reflex if indic.; Complete Time: 10:59 ec2 11/21 09:28 Order name: Protime (+inr); Complete Time: 10:53 ec2 11/21 09:28 Order name: Ptt, Activated; Complete Time: 10:53 ec2 11/21 09:28 Order name: Urinalysis w/ reflexes; Complete Time: 10:53 ec2 11/21 09:28 Order name: US Abdomen Limited; Complete Time: 11:29 ec2 11/21 09:47 Order name: Abdomen ; Complete Time: 11:59 EDMS 11/21 09:28 Order name: Accucheck; Complete Time: 10:26 ec2 11/21 09:28 Order name: Cardiac monitoring; Complete Time: 09:30 ec2 11/21 09:28 Order name: IV Saline Lock - Large Bore; Complete Time: 10:26 ec2 11/21 09:28 Order name: Labs collected and sent; Complete Time: ec2 11/21 09:28 Order name: O2 Per Protocol; Complete Time: ec2 11/21 09:28 Order name: O2 Sat Monitoring; Complete Time: ec2 11/21 09:28 Order name: Vital Signs; Complete Time: ec2 11/21 12:00 Order name: Vital Signs; Complete Time: 12:15 ec2 Administered Medications: 10: Drug: NS 0.9% IV 1000 ml IV at 1 bolus Per protocol; 1000 mL bolus Route: IV; Rate: 1 bp bolus; Site: left antecubital; 12:19 Follow up: IV Status: Completed infusion; IV Intake: 1000ml bp 10:26 Drug: metoCLOPramide IVP 10 mg IVP once; over 1 to 2 minutes Route: IVP; Site: left bp antecubital; 12:19 Follow up: Response: No adverse reaction bp 10:26 Drug: diphenhydrAMINE IVP 25 mg IVP once Route: IVP; Site: left antecubital; bp 12:19 Follow up: Response: No adverse reaction bp 10:26 Drug: morphine IVP or IV 4 mg IVP once over 4 mins Route: IVP; Infused Over: 4 mins; bp Site: left antecubital; 12:19 Follow up: Response: No adverse reaction bp 11:38 Drug: Potassium Chloride PO 40 mEq PO once Route: PO; bp 12:19 Follow up: Response: No adverse reaction bp Disposition Summary: 11/22/23 12:08 Discharge Ordered Notes: Location: Home ec2 Condition: Stable ec2 Diagnosis - Noninfective gastroenteritis and colitis, unspecified ec2 - Other cholelithiasis without obstruction ec2 Followup: ec2 - With: Blayne Blackwell MD - When: - Reason: Recheck today's complaints Followup: ec2 - With: Blayne Curry MD - When: - Reason: Recheck today's complaints Discharge Instructions: - Discharge Summary Sheet ec2 - Diarrhea, Adult ec2 - Cholelithiasis ec2 - Shoulder Sprain ec2 Forms: - Medication Reconciliation Form ec2 - Antibiotic Education ec2 - Prescription Opioid Use ec2 - Patient Portal Instructions ec2 - Leadership Thank You Letter ec2 Prescriptions: - Reglan 10 mg Oral Tablet - take 1 tablet ORAL route every 6 hours take 30 minutes before meals and at ec2 bedtime; 20 tablet; Refills: 0, Product Selection Permitted Signatures: Dispatcher [employer] Alex Vyas, RN RN bp Haritha Lugo RN RN ap3 Fabrice Driver MD MD ec2 Corrections: (The following items were deleted from the chart) 09 09:29 BLOOD CULTURE*+BA.LAB.BRZ ordered. EDMS EDMS 09:29 CBC+H.LAB.BRZ ordered. EDMS EDMS : 09:29 COMPREHENSIVE METABOLIC PANEL+C.LAB.BRZ ordered. EDMS EDMS 09:29 LACTATE+C.LAB.BRZ ordered. EDMS EDMS : 09:29 PROTIME (+INR)+COAG.LAB.BRZ ordered. EDMS EDMS 09:29 PTT, ACTIVATED+COAG.LAB.BRZ ordered. EDMS EDMS 09:29 Urinalysis+U.LAB.BRZ ordered. EDMS EDMS : 09:29 Abdomen Limited+US.RAD.BRZ ordered. EDMS EDMS : 09:29 Abdomen W/ Con+CT.RAD.BRZ ordered. EDMS EDMS
[2023-11-22 12:42] VITALS: BP 131/99; TEMP 98.3; O2SAT 99
== END 2023-11-22 12:20 | disposition home or self-care (01) ==
LOC: ER 09:08
DX: K52.9 Noninfective gastroenteritis and colitis, unspecified (principal); K80.80 Other cholelithiasis without obstruction
CPT/HCPCS: 96361; 87040 ×2; 85025; 81001; 36415; 85610; 83605; 85730; 80053; 74177; 76705; 96375; 96374; 99284; Q9967; J2765; J1200; J7030